=== PATIENT | male | born 1970 | race Caucasian/White ===

== ENCOUNTER 2017-05-10 14:51 | Observation (INO) | payer OTHER ==
[~2017-05-10] VITALS: Ht 175.3 cm; Wt 95.5 kg
[~2017-05-10 14:51] MED LIST: ALPR-138 PO; PROM25TA5 PO
[2017-05-10 14:53] VITALS: BP 203/95; PULSE 133; RESP 20; TEMP 98.7; O2SAT 99
[2017-05-10] MEDS ORDERED: ASPIRIN 81 MG CHEW TAB PO ONE (15:15)
[2017-05-10 15:42] LABS: AUTOMATED NEUTROPHIL # 4.4 TH/MM3 (1.8-7.7); BASOPHIL % 0.5 % (0.0-2.0); EOSINOPHIL # 0.1 TH/MM3 (0-0.4); EOSINOPHIL % 0.9 % (0.0-4.0); HEMATOCRIT 50.7 % (39.0-51.0); HEMOGLOBIN 16.4 GM/DL (13.0-17.0); LYMPH % 27.5 % (9.0-44.0); MEAN CELL VOLUME 89.2 FL (80.0-100.0); MEAN CORPUSCULAR HEMOGLOBIN 28.9 PG (27.0-34.0); MEAN CORPUSCULAR HGB CONC 32.4 % (32.0-36.0); MONO % 9.1 % (0.0-8.0); MONOCYTE # 0.6 TH/MM3 (0-0.9); PLATELET COUNT 341 TH/MM3 (150-450); RED BLOOD COUNT 5.68 MIL/MM3 (4.50-5.90); RED CELL DISTRIBUTION WIDTH 14.1 % (11.6-17.2); WHITE BLOOD COUNT 7.1 TH/MM3 (4.0-11.0)
[2017-05-10 15:54] LABS: INTERNATIONAL NORMALIZED RATIO 0.9 RATIO; PROTHROMBIN TIME - PATIENT 9.6 SEC (9.8-11.6)
--- NOTE | 2017-05-10 15:57 | RADRPT ---
EXAM DATE/TIME: 05/10/2017 15:49 [place] COMPARISON: No previous studies available for comparison. INDICATIONS : Chest pain and shortness of breath. MEDICAL HISTORY : None. SURGICAL HISTORY : None. ENCOUNTER: Initial ACUITY: 2 days PAIN SCORE: 7/10 LOCATION: Left upper chest FINDINGS: PA and lateral views of the chest demonstrate the lungs to be symmetrically aerated without evidence of mass, infiltrate or effusion. The cardiomediastinal contours are unremarkable. Osseous structure s are intact. An azygous lobe variant is present. CONCLUSION: No acute disease. There is no evidence of pneumonia. Ta Walter MD on May 10, 2017 at 15:55 Board Certified Radiologist. This report was verified electronically.
[2017-05-10] MEDS ORDERED: ACETAMINOPHEN 325 MG TAB PO ONE (16:15)
[2017-05-10] MEDS ORDERED: NITROGLYCERIN 0.4 MG SL 25 TABS/BTL SL ONE (16:15)
[2017-05-10 16:17] LABS: ALBUMIN 4.6 GM/DL (3.4-5.0); ALT (GPT) 54 U/L (12-78); AST (GOT) 41 U/L (15-37); BICARBONATE 22.2 MEQ/L (21.0-32.0); BLOOD UREA NITROGEN 18 MG/DL (7-18); CALCIUM 9.6 MG/DL (8.5-10.1); CHLORIDE 103 MEQ/L (98-107); CREATININE 1.25 MG/DL (0.60-1.30); GLOMERULAR FILTRATION RATE 62 ML/MIN (>89); GLUCOSE,RANDOM 95 MG/DL (74-106); LIPASE 211 U/L (73-393); MAGNESIUM 2.1 MG/DL (1.5-2.5); SODIUM (NA) 137 MEQ/L (136-145)
[2017-05-10 16:22] LABS: ALKALINE PHOSPHATASE 85 U/L (45-117); TOTAL BILIRUBIN ADULT 0.2 MG/DL (0.2-1.0); TOTAL PROTEIN 8.9 GM/DL (6.4-8.2); TROPONIN I LESS THAN 0.02 NG/ML (0.02-0.05)
[2017-05-10] MEDS ORDERED: XANA1TAB2 PO (16:23)
[2017-05-10] MEDS ORDERED: LISINOPRIL 10 MG TAB PO ONE (17:00)
[2017-05-10] MEDS ORDERED: ACETAMINOPHEN 500 MG CPLT PO PRN (18:00)
[2017-05-10] MEDS ORDERED: ONDANSETRON HCL 4 MG/2 ML VIAL IV PUSH PRN ×2 (18:00→18:15)
[2017-05-10] MEDS ORDERED: SODIUM CHLORIDE 0.9% FLUSH 10 ML FLUSH IV FLUSH PRN (18:00)
--- NOTE | 2017-05-10 18:04 | PD ---
HPI Chief Complaint: Chest Pain Time Seen by Provider: 16:05 Travel History International Travel<30 days: No Contact w/Intl Traveler<30days: No Traveled to known affect area: No History of Present Illness HPI 47-year-old male that presents to the ED for evaluation of left-sided chest pain. Per patient she's had this since 30 minutes before coming to the ED. Patient states the chest pain is on and off and is pustule-like like something sitting on his chest. He denies any radiation of the pain but feels dizzy and lightheaded. He denies any history of heart disease on himself but he does have a family history of heart disease in the family having had both parents had a heart attack at his age. Patient has a history of high cholesterol. Takes no medications for the blood pressure though his blood pressure is elevated here today. Per patient he took an aspirin given by us. He denies any abdominal pain. Nausea vomiting. No bowel movement or urinary issues. Patient does have a significant history of anxiety and takes Xanax and he did try wants to see this will help but that is not. The patient his pain is different from his previous be a per patient pain is 5 out of 10 if anything. more pressure-like. Again no radiation of the pain. No history of smoking. PFSH Past Medical History Anxiety: Yes High Cholesterol: Yes Hypertension: Yes Past Surgical History Other Surgery: Yes (knee ) Social History Alcohol Use: Yes (WEEKENDS) Tobacco Use: No Substance Use: No Allergies-Medications (Allergen,Severity, Reaction): Coded Allergies: No Known Allergies (Verified , 05/10/15) Reported Meds & Prescriptions Reported Meds & Active Scripts Active Reported Xanax (Alprazolam) 1 Mg Tab 1 Mg PO Q8H PRN Review of Systems Except as stated in HPI: all other systems reviewed are Neg Physical Exam Narrative GENERAL: SKIN: Warm and dry. HEAD: Atraumatic. Normocephalic. EYES: Pupils equal and round. No scleral icterus. No injection or drainage. ENT: No nasal bleeding or discharge. Mucous membranes pink and moist. Tongue is midline. No uvula deviation. NECK: Trachea midline. No JVD. CARDIOVASCULAR: Regular rate and rhythm. No murmurs, S3, S4. Chest pain is not reproducible with touch. RESPIRATORY: No accessory muscle use. Clear to auscultation. Breath sounds equal bilaterally. GASTROINTESTINAL: Abdomen soft, non-tender, nondistended. Hepatic and splenic margins not palpable. MUSCULOSKELETAL: Extremities without clubbing, cyanosis, or edema. No obvious deformities. Full range of motion of the upper and lower extremities bilaterally. 2+ pulses bilaterally. NEUROLOGICAL: Awake and alert. No obvious cranial nerve deficits. Motor grossly within normal limits. Five out of 5 muscle strength in the arms and legs. Normal speech. PSYCHIATRIC: Appropriate mood and affect; insight and judgment normal. Data Data Last Documented VS Vital Signs Date Time Temp Pulse Resp B/P (MAP) Pulse Ox O2 Delivery O2 Flow Rate FiO2 05/10/17 16:17 107 Room Air 05/10/17 14:53 98.7 20 203/95 (131) 99 Orders Orders Electrocardiogram (05/10/17 15:08) Ckmb (Isoenzyme) Profile (05/10/17 15:08) Complete Blood Count With Diff (05/10/17 15:08) Comprehensive Metabolic Panel (05/10/17 15:08) Magnesium (Mg) (05/10/17 15:08) Prothrombin Time / Inr (Pt) (05/10/17 15:08) Act Partial Throm Time (Ptt) (05/10/17 15:08) Troponin I (05/10/17 15:08) Lipase (05/10/17 15:08) Aspirin Chew (Aspirin Chew) (05/10/17 15:15) Chest, Pa & Lat (05/10/17 15:08) Nitroglycerin Sl (Nitrostat Sl) (05/10/17 16:15) D-Dimer (05/10/17 16:14) Acetaminophen (Tylenol) (05/10/17 16:15) CKMB (05/10/17 15:18) CKMB% (05/10/17 15:18) Lisinopril (Prinivil) (05/10/17 17:00) Admit Order (Ed Use Only) (05/10/17 17:57) Activity Bed Rest With Brp (05/10/17 17:59) Vital Signs (Adult) Q4H (05/10/17 17:59) Cardiac Rhythm .As Directed (05/10/17 17:59) Notify Dr: Other .PRN (05/10/17 17:59) Notify Parameters (05/10/17 17:59) Resp Oxygen Nasal Cannula (05/10/17 ) Ckmb (Isoenzyme) Profile (05/10/17 18:18) Ckmb (Isoenzyme) Profile (05/10/17 21:18) Troponin I (05/10/17 18:18) Troponin I (05/10/17 21:18) Electrocardiogram (05/10/17 18:18) Electrocardiogram (05/10/17 21:18) ^ Obtain (05/10/17 17:59) Sodium Chloride 0.9% Flush (Ns Flush) (05/10/17 18:00) Sodium Chloride 0.9% Flush (Ns Flush) (05/10/17 21:00) Acetaminophen (Tylenol) (05/10/17 18:00) Ondansetron Inj (Zofran Inj) (05/10/17 18:00) Hvac Sheet Metal Installer Helper / Telemetry BRENDON.Q8H (05/10/17 17:59) Labs Laboratory Tests Test 05/10/17 15:18 White Blood Count 7.1 TH/MM3 Red Blood Count 5.68 MIL/MM3 Hemoglobin 16.4 GM/DL Hematocrit 50.7 % Mean Corpuscular Volume 89.2 FL Mean Corpuscular Hemoglobin 28.9 PG Mean Corpuscular Hemoglobin Concent 32.4 % Red Cell Distribution Width 14.1 % Platelet Count 341 TH/MM3 Mean Platelet Volume 8.0 FL Neutrophils (%) (Auto) 62.0 % Lymphocytes (%) (Auto) 27.5 % Monocytes (%) (Auto) 9.1 % Eosinophils (%) (Auto) 0.9 % Basophils (%) (Auto) 0.5 % Neutrophils # (Auto) 4.4 TH/MM3 Lymphocytes # (Auto) 2.0 TH/MM3 Monocytes # (Auto) 0.6 TH/MM3 Eosinophils # (Auto) 0.1 TH/MM3 Basophils # (Auto) 0.0 TH/MM3 CBC Comment DIFF FINAL Differential Comment Prothrombin Time 9.6 SEC Prothromb Time International Ratio 0.9 RATIO Activated Partial Thromboplast Time 25.3 SEC D-Dimer Quantitative (PE/DVT) LESS THAN 0.19 MG/L FEU Blood Urea Nitrogen 18 MG/DL Creatinine 1.25 MG/DL Random Glucose 95 MG/DL Total Protein 8.9 GM/DL Albumin 4.6 GM/DL Calcium Level 9.6 MG/DL Magnesium Level 2.1 MG/DL Alkaline Phosphatase 85 U/L Aspartate Amino Transf (AST/SGOT) 41 U/L Alanine Aminotransferase (ALT/SGPT) 54 U/L Total Bilirubin 0.2 MG/DL Sodium Level 137 MEQ/L Potassium Level 4.0 MEQ/L Chloride Level 103 MEQ/L Carbon Dioxide Level 22.2 MEQ/L Anion Gap 12 MEQ/L Estimat Glomerular Filtration Rate 62 ML/MIN Total Creatine Kinase 287 U/L Creatine Kinase MB 2.1 NG/ML Troponin I LESS THAN 0.02 NG/ML Lipase 211 U/L MDM Medical Decision Making Medical Screen Exam Complete: Yes Emergency Medical Condition: Yes Medical Record Reviewed: Yes Interpretation(s) EKG shows sinus rhythm with no sign of acute ischemia but sinus tachycardia. Read by me and attending. Troponin and CK-MB negative. Last Impressions Chest X-Ray 05/10/17 1508 Signed Impressions: Service Date/Time: Wednesday, May 10, 2017 15:49 - CONCLUSION: No acute disease. There is no evidence of pneumonia. Ta Walter MD CBC & BMP Diagram 05/10/17 15:18 Total Protein 8.9 H, Albumin 4.6, Calcium Level 9.6, Magnesium Level 2.1, Alkaline Phosphatase 85, Aspartate Amino Transf (AST/SGOT) 41 H, Alanine Aminotransferase (ALT/SGPT) 54, Total Bilirubin 0.2 Differential Diagnosis Chest pain versus ACS versus normal exam versus a angina Narrative Course 47-year-old male that presents to the ED for evaluation of chest pain. Patient was properly examined and was found to have signs and symptoms consistent appears to be chest pain. Concerning for ACS. Labs and imaging were ordered. Labs and imaging were essentially unremarkable. D-dimer was also negative. At this time there is concern for ACS. Patient does have risk factors including age, being male, high cholesterol and high blood pressure and family history. I do recommend admission to the chest pain center. Patient agrees with this. Patient did have some resolution of his discomfort with the nitroglycerin. He was given lisinopril for his blood pressure. Family and patient agree with chest pain center admission. Patient was admitted by me to the chest pain center. Diagnosis Primary Impression: Chest pain in adult Admitting Information Admitting Physician Requests: Charan Burleson May 10, 2017 18:04
[2017-05-10] MEDS ORDERED: NITROGLYCERIN 0.4 MG SL 25 TABS/BTL SL PRN (18:15)
--- NOTE | 2017-05-10 19:00 | HHI.HP ---
HPI Primary Care Physician [facility] Chief Complaint Chest pain History of Present Illness 47-year-old male history of hyperlipidemia and GERD presents to emergency room for further evaluation of dizziness and chest pressure. Onset between 2:30- 3pm. Driving on [place] when he felt dizzy, anxious, developed a heavy, chest pressure, and heart pounding.Heart rate noted to feel irregular. Chest pain substernal. Characterized as "a tire sitting on my chest. " No radiation of pain. Associated symptoms of dyspnea and nausea. Denied vomiting or diaphoresis. Did not hurt to take a deep breath. Chest discomfort constant, currently mild in severity. Dizziness and anxious feeling has resolved. Continues to feel intermittent palpations. No known precipitating or relieving factors. Denies similar pain in the past. Endorses history of anxiety attacks although this episode not similar to previous anxiety attacks. Review of Systems General: No fatigue,weakness, fever, chills, or recent illness change in appetite. Has been in his general state of health other than intermittent chest pressure x2 weeks. Has seen his PCP regarding this and reports PCP felt his discomfort most likely anxiety. Chest pressure substernal occurring after eating or laying down before sleep. HEENT: No BROWN, no vision changes, no nasal congestion or drainage CV: Continues to have chest pressure as stated above, currently mild in intensity. Heart pounding relieved, now having intermittent palpation. RESP: No SOB, cough, wheeze, or recent URI. GI: History of GERD. Raspy voice and dry, nonproductive cough x1 month. Nausea has resolved. No vomiting,pain, distention, melena, blood in the stool. No change in appetite, no unintentional weight gain or weight loss : No dysuria, urgency, frequency EXT: No lower leg edema, no paraesthesias MS: No discomfort or change in ROM NEURO: No change in memory, dizziness, difficulty with balance, LOC, motor/ sensory deficits PSYCH: History of anxiety, no depression. Endorses current situation stress with work. SKIN: No rashes, no concerning lesions Past Family Social History Allergies: Coded Allergies: No Known Allergies (Verified Allergy, Unknown, 05/10/17) Past Medical History GERD, anxiety, hyperlipidemia Past Surgical History Knee surgery Reported Medications Reported Meds & Active Scripts Active Reported Xanax (Alprazolam) 1 Mg Tab 1 Mg PO Q8H PRN Omeprazole daily (dose unknown) Cholesterol medication (name unknown) daily Liquid vitamin daily Active Ordered Medications Current Medications Medications (Trade) Dose Ordered Sig/Navjot Route Start Time Stop Time Status Last Admin (NS Flush) 2 ml UNSCH PRN IV FLUSH 05/10/17 18:00 (NS Flush) 2 ml BID IV FLUSH 05/10/17 21:00 (Tylenol) 500 mg Q4H PRN PO 05/10/17 18:00 (Zofran Inj) 4 mg Q6H PRN IV PUSH 05/10/17 18:15 (Nitrostat Sl) 0.4 mg Q5M PRN SL 05/10/17 18:15 (Aspirin) 325 mg DAILY PO 05/11/17 09:00 Family History Positive for early onset cardiovascular disease. Father myocardial infarction early 40s. age 79. Mother myocardial infarction mid 40s. age 64 lung cancer. Younger sister cause unknown (reportedly from drug interactions and NC). Social History Known hyperlipidemia. No known hypertension, coronary artery disease, or diabetes. Lifelong nonsmoker. Endorses alcohol use on weekends. Denies any illegal drug use. . Endorses active lifestyle running 3 miles every other day. Past Cardiac Testing None Physical Exam Vital Signs Vital Signs Date Time Temp Pulse Resp B/P (MAP) Pulse Ox O2 Delivery O2 Flow Rate FiO2 05/10/17 16:17 107 Room Air 05/10/17 14:53 98.7 133 20 203/95 (131) 99 Room Air Physical Exam GENERAL: Alert WN, WD, NAD, pleasant, male HEAD: NC, AT EYES: Sclera clear, conjunctiva without injection, pupils equal and round ENT: Mucous membranes pink and moist NECK: Supple, no masses, trachea midline CV: Tacycardiac, regular, rate. without murmur, rub, gallop, no JVD, S1-S2 no S3 -S4. Chest wall nontender with palpation. RESP: Clear lungs throughout bilateral, no crackles, wheeze, rhonchi, symmetrical chest rise, nonlabored, able to speak in full sentences ABD: Soft, NT, ND, no masses, positive bowel tones EXT: Pulses +24, no dependent edema MS: Normal tone 4 extremities, no obvious deformities, full range of motion NEURO: CN II through CN XII grossly intact, motor strength 5/5 PSYCH: A+O 3, pleasant affect, appropriate speech, mood, insight and judgment SKIN: Normal turgor, normal texture, no lesions, no rashes, brisk cap refill, even hair distribution Laboratory Laboratory Tests Test 05/10/17 15:18 White Blood Count 7.1 Red Blood Count 5.68 Hemoglobin 16.4 Hematocrit 50.7 Mean Corpuscular Volume 89.2 Mean Corpuscular Hemoglobin 28.9 Mean Corpuscular Hemoglobin Concent 32.4 Red Cell Distribution Width 14.1 Platelet Count 341 Mean Platelet Volume 8.0 Neutrophils (%) (Auto) 62.0 Lymphocytes (%) (Auto) 27.5 Monocytes (%) (Auto) 9.1 Eosinophils (%) (Auto) 0.9 Basophils (%) (Auto) 0.5 Neutrophils # (Auto) 4.4 Lymphocytes # (Auto) 2.0 Monocytes # (Auto) 0.6 Eosinophils # (Auto) 0.1 Basophils # (Auto) 0.0 CBC Comment DIFF FINAL Differential Comment Prothrombin Time 9.6 Prothromb Time International Ratio 0.9 Activated Partial Thromboplast Time 25.3 D-Dimer Quantitative (PE/DVT) LESS THAN 0.19 Blood Urea Nitrogen 18 Creatinine 1.25 Random Glucose 95 Total Protein 8.9 Albumin 4.6 Calcium Level 9.6 Magnesium Level 2.1 Alkaline Phosphatase 85 Aspartate Amino Transf (AST/SGOT) 41 Alanine Aminotransferase (ALT/SGPT) 54 Total Bilirubin 0.2 Sodium Level 137 Potassium Level 4.0 Chloride Level 103 Carbon Dioxide Level 22.2 Anion Gap 12 Estimat Glomerular Filtration Rate 62 Total Creatine Kinase 287 Creatine Kinase MB 2.1 Troponin I LESS THAN 0.02 Lipase 211 Result Diagram: 05/10/17 1518 05/10/17 1518 Imaging Last Impressions Chest X-Ray 05/10/17 1508 Signed Impressions: Service Date/Time: Wednesday, May 10, 2017 15:49 - CONCLUSION: No acute disease. There is no evidence of pneumonia. Ta Walter MD Course EKG NSR, normal axis, no st t segment changes Caprini VTE Risk Assessment Caprini VTE Risk Assessment: No/Low Risk (score <= 1) Caprini Risk Assessment Model Point Value = 1 Point Value = 2 Point Value = 3 Point Value = 5 Age 41-60 Minor surgery BMI > 25 kg/m2 Swollen legs Varicose veins or History of unexplained or recurrent spontaneous Oral contraceptives or hormone replacement Sepsis (< 1 month) Serious lung disease, including pneumonia (< 1 month) Abnormal pulmonary function Acute myocardial infarction Congestive heart failure (< 1 month) History of inflammatory bowel disease Medical patient at bed rest Age 61-74 Arthroscopic surgery Major open surgery (> 45 min) Laparoscopic surgery (> 45 min) Malignancy Confined to bed (> 72 hours) Immobilizing plaster cast Central venous access Age >= 75 History of VTE Family history of VTE Factor V Leiden Prothrombin [id number] Lupus anticoagulant Anticardiolipin antibodies Elevated serum homocysteine Heparin-induced thrombocytopenia Other congenital or acquired thrombophilia Stroke (< 1 month) Elective arthroplasty Hip, pelvis, or leg fracture Acute spinal cord injury (< 1 month) Prophylaxis Regimen Total Risk Factor Score Risk Level Prophylaxis Regimen 0-1 Low Early ambulation 2 Moderate Order ONE of the following: *Sequential Compression Device (SCD) *Heparin 5000 units SQ BID 3-4 Higher Order ONE of the following medications: *Heparin 5000 units SQ TID *Enoxaparin/Lovenox 40 mg SQ daily (WT < 150 kg, CrCl > 30 mL/min) *Enoxaparin/Lovenox 30 mg SQ daily (WT < 150 kg, CrCl > 10-29 mL/min) *Enoxaparin/Lovenox 30 mg SQ BID (WT < 150 kg, CrCl > 30 mL/min) AND/OR *Sequential Compression Device (SCD) 5 or more Highest Order ONE of the following medications: *Heparin 5000 units SQ TID (Preferred with Epidurals) *Enoxaparin/Lovenox 40 mg SQ daily (WT < 150 kg, CrCl > 30 mL/min) *Enoxaparin/Lovenox 30 mg SQ daily (WT < 150 kg, CrCl > 10-29 mL/min) *Enoxaparin/Lovenox 30 mg SQ BID (WT < 150 kg, CrCl > 30 mL/min) AND *Sequential Compression Device (SCD) Assessment and Plan Assessment and Plan #1 Chest pain-admitted chest pain center. Rule out with 3 sets of EKG, cardiac enzymes, and monitor overnight. Will be seen and evaluated by Dr. Massimo Peace in a.m. Discussed likelihood of completing exercise stress test due to personal hyperlipidemia and family history. Patient to plan of care. #2 GERD-continue omeprazole, encouraged follow up with PCP with reported hoarse voice and unexplained non productive cough. #3 Anxiety-continue Michell Nicole May 10, 2017 19:00
[2017-05-10] MEDS ORDERED: cloNIDine HCL 0.1 MG TAB PO PRN (19:15)
[2017-05-10 19:18] VITALS: BP 135/87; PULSE 84; RESP 13; O2SAT 98
[2017-05-10 19:29] LABS: TROPONIN I LESS THAN 0.02 NG/ML (0.02-0.05)
[2017-05-10 20:06] VITALS: BP 138/83; PULSE 73; RESP 16; TEMP 97.8; O2SAT 98
[2017-05-10] MEDS: SODIUM CHLORIDE 0.9% FLUSH 10 ML FLUSH IV FLUSH SCH (20:44)
[2017-05-10 21:06] VITALS: O2SAT 95
[2017-05-10 22:13] LABS: TROPONIN I LESS THAN 0.02 NG/ML (0.02-0.05)
[2017-05-10 23:00] VITALS: PULSE 65
[2017-05-10 23:51] VITALS: BP 114/70; PULSE 87; RESP 18; TEMP 97.8; O2SAT 98
[2017-05-11 05:59] VITALS: BP 110/69; PULSE 60; RESP 18; TEMP 98.2; O2SAT 100
[2017-05-11 07:22] VITALS: PULSE 52
[2017-05-11 08:17] VITALS: BP 135/80; PULSE 56; RESP 20; TEMP 97.9; O2SAT 96
[2017-05-11] MEDS: SODIUM CHLORIDE 0.9% FLUSH 10 ML FLUSH IV FLUSH SCH (08:26)
[2017-05-11] MEDS ORDERED: ATOR40TA16 PO (08:31)
[2017-05-11] MEDS ORDERED: ASPIRIN 325 MG TAB PO SCH (09:00)
--- NOTE | 2017-05-11 11:03 | TR ---
Date Performed: 05/11/2017 Time Performed: 09:54:06 DOCTOR: Massimo Peace DRUG LIST: CLINICAL HISTORY: ACUTE CHEST PAIN REASON FOR TEST: ACUTE CHEST PAIN REASON FOR ENDING: OBSERVATION: CONCLUSION: PT EXERCISED USING LISA PROTOCOL FOR Total Exercise Time=10:01 Max Predicted AQ=657 % Max HR Achieved=94.0% Maximum GD=592/92. EXERCISE TOLERANCE VERY GOOD. NO CHEST PAIN. TEST ENDED S ECONDARY TO EXCEEDING GOAL. BP RESPONSE W/ SLIGHT HYPERTENSIVE. AT PEAK EXERCISE, RAPIDLY UPSLOPING S T-T SEGMENTS WITHOUT EVIDENCE OF ISCHEMIA. RARE PVC O/W NO ARRHYTHMIAS. RECOVERY QUICK AND UNREMARKAB LE COMMENTS: NEGATIVE STRESS TEST WITH A LOW PROBABILITY OF SIGNIFICANT ISCHEMIC CAD CAUSE OF CU RRENT PROBLEM.
--- NOTE | 2017-05-11 11:31 | HHI.DCPOC ---
Discharge Care Plan Diagnosis: (1) Elevated blood pressure reading without diagnosis of hypertension (2) Chest pain in adult Goals to Promote Your Health * To prevent worsening of your condition and complications * To maintain your health at the optimal level Directions to Meet Your Goals Take your medications as prescribed Follow your dietary instruction Follow activity as directed Keep your appointments as scheduled Take your immunizations and boosters as scheduled If your symptoms worsen call your PCP, if no PCP go to Urgent Care Center or Emergency Room Smoking is Dangerous to Your Health. Avoid second hand smoke Call the 24-hour hour crisis hotline for domestic abuse at Natasha Robins May 11, 2017 11:31
--- NOTE | 2017-05-11 11:36 | HHI.DCPOC ---
Discharge Care Plan Diagnosis: (1) Elevated blood pressure reading without diagnosis of hypertension (2) Chest pain in adult Goals to Promote Your Health * To prevent worsening of your condition and complications * To maintain your health at the optimal level Directions to Meet Your Goals Take your medications as prescribed Follow your dietary instruction Follow activity as directed Keep your appointments as scheduled Take your immunizations and boosters as scheduled If your symptoms worsen call your PCP, if no PCP go to Urgent Care Center or Emergency Room Smoking is Dangerous to Your Health. Avoid second hand smoke Call the 24-hour hour crisis hotline for domestic abuse at Addendum Remarks Have patient monitor his B/P as outpatient daily and record and f/u with PCP to review for any possible need for B/P medications. Natasha Robins May 11, 2017 11:36
--- NOTE | 2017-05-11 11:38 | EKG ---
Date Performed: 05/10/2017 Time Performed: 22:29:37 PTAGE: 47 years EKG: Sinus rhythm WITH FREQUENT SUPRAVENTRICULAR PREMATURE COMPLEXES NONSPECIFIC T-WAVE ABNORMALITY ABNORMAL RHYTHM EC G NO SIG CHANGE PREVIOUS TRACING : 05/10/2017 18.40 DOCTOR: Massimo Peace Interpretating Date/Time 05/11/2017 11:36:50
--- NOTE | 2017-05-12 13:16 | EKG ---
Date Performed: 05/10/2017 Time Performed: 18:40:19 PTAGE: 47 years EKG: Sinus rhythm WITH SINUS ARRHYTHMIA NORMAL ECG RATE HAS SLOWED OTHERWISE UNCHANGED PREVIOUS TRACING : 05/10/2017 15.11 DOCTOR: Massimo Peace Interpretating Date/Time 05/12/2017 13:15:05
--- NOTE | 2017-05-12 13:20 | EKG ---
Date Performed: 05/10/2017 Time Performed: 15:11:08 PTAGE: 47 years EKG: SINUS TACHYCARDIA WITH OCCASIONAL SUPRAVENTRICULAR PREMATURE COMPLEXES ABNORMAL RHYTHM ECG RATE INCREASED OTHERWISE UNCHANGED PREVIOUS TRACING : 01/11/2012 16.19 DOCTOR: Massimo Peace Interpretating Date/Time 05/12/2017 13:18:21
== END 2017-05-11 12:49 | disposition home or self-care (01) ==
LOC: NEPE 14:51 → NEDA 17:59 → NEPFCDU 19:57
PROVIDERS: ADMIT Internal Medicine Interventional Cardiology; ATTEND Internal Medicine Interventional Cardiology
DX: R07.9 Chest pain, unspecified (principal); R03.0 Elevated blood-pressure reading, without diagnosis of hypertension; Z82.49 Family history of ischemic heart disease and other diseases of the circulatory system; E78.00 Pure hypercholesterolemia, unspecified; F41.1 Generalized anxiety disorder; K21.9 Gastro-esophageal reflux disease without esophagitis; Z79.899 Other long term (current) drug therapy; R94.31 Abnormal electrocardiogram [ECG] [EKG]
CPT/HCPCS: 71020; 80053; 82550; 82552; 83690; 83735; 84484; 85025; 85379; 85610; 85730; 93005; 93017; 99285; G0378